=== PATIENT | male | born 1985 | race Caucasian/White ===

== ENCOUNTER 2022-07-18 09:25 | Emergency (ER) | payer SELFPAY ==
[~2022-07-18] VITALS: Ht 167.6 cm; Wt 77.0 kg
[2022-07-18] MEDS ORDERED: DIPHENHYDRAMINE 50MG/ML VIAL IM STA (09:39)
[2022-07-18] MEDS ORDERED: HALOPERIDOL LACTATE 5MG/ML VIAL IM STA (09:39)
[2022-07-18] MEDS ORDERED: LORAZEPAM 2MG/ML CPJ IM STA (09:39)
[2022-07-18 11:40] LABS: HEMATOCRIT. 40.3 % (42.0-52.0); HEMOGLOBIN. 13.9 g/dL (14.0-18.0); MEAN CORPUSCULAR HEMOGLOBIN 31.9 pg (28.0-32.0); MEAN CORPUSCULAR VOLUME 92.3 fL (80.0-94.0); MEAN PLATELET VOLUME 8.5 fl (7.4-10.4); PLATELET 214 x1000/uL (130-400); RED BLOOD CELL COUNT 4.37 mill/uL (4.7-6.1); RED CELL DISTRIBUTION WIDTH 13.2 % (11.6-14.6)
[2022-07-18 11:48] LABS: CHLORIDE 100 mEq/L (98-107)
[2022-07-18 12:07] LABS: ETHANOL BLOOD < 10 mg/dL
[2022-07-18 13:11] LABS: PLATELET ESTIMATE NORMAL
[2022-07-18] MEDS ORDERED: SODIUM CHLORIDE 0.9% 1,000 ML IV ONE (13:45)
[2022-07-18] MEDS: OLANZAPINE 5MG TABLET ODT PO SCH ×2 (14:15→21:14)
[2022-07-18 14:36] LABS: CLARITY URINE CLEAR (CLEAR); COLOR URINE YELLOW (YELLOW); KETONES URINE 1+ (NEGATIVE); LEUKOCYTE ESTERASE URINE NEGATIVE (NEGATIVE); NITRITE URINE NEGATIVE (NEGATIVE); OCCULT BLOOD URINE TRACE (NEGATIVE); PROTEIN URINE TRACE (NEGATIVE); SPECIFIC GRAVITY URINE 1.012 (1.005-1.030); UROBILINOGEN URINE 0.2 E.U./dL (0.2-1.0)
[2022-07-18 15:09] LABS: *AMPHETAMINES SCREEN URINE PRESUMTIVE POSITIVE (NEGATIVE); *BARBITURATES SCREEN URINE NEGATIVE (NEGATIVE); *BENZODIAZEPINES SCREEN URINE NEGATIVE (NEGATIVE); *COCAINE SCREEN URINE NEGATIVE (NEGATIVE); CANNABINOID URINE SCREEN NEGATIVE (NEGATIVE); METHADONE URINE SCREEN NEGATIVE (NEGATIVE); OPIATES URINE SCREEN NEGATIVE (NEGATIVE); PHENCYCLIDINE URINE SCREEN NEGATIVE (NEGATIVE)
[2022-07-19] MEDS: OLANZAPINE 5MG TABLET ODT PO SCH (09:57)
[2022-07-19 10:55] VITALS: BP 122/61
== END 2022-07-19 11:22 | disposition home or self-care (01) ==
LOC: ER 09:45
DX: F23 Brief psychotic disorder (principal); R45.1 Restlessness and agitation; F15.10 Other stimulant abuse, uncomplicated; Z20.822 Contact with and (suspected) exposure to COVID-19
CPT/HCPCS: 73130; 76705; 80053; 80305; 80307; 80320; 81003; 85025; 96360; 96361; 96372; 99291; C9803; J1200; J1630; J2060; U0003; U0005; G0480